=== PATIENT | female | born 1930 | race Caucasian/White ===

== ENCOUNTER 2020-10-30 20:25 | Observation (INO) | payer MEDICARE, OTHER ==
[~2020-10-30] VITALS: Ht 160 cm; Wt 72.1 kg
[~2020-10-30 20:25] MED LIST: ASPIRIN81 M1; DARVON65 MG; DIOVAN HCT 1601 EAC1; DIOVAN40 MG; FISH OIL 1,0001 EAC1; FOSAMAX35 MG PO; MULTIPLE VITAMIN; MULTIVITAMINS1 EAC8
[2020-10-30 21:56] LABS: BASOPHILS % 0.4 % (0.0-1.0); EOSINOPHILS # (AUTO) 0.1 (0.0-0.4); EOSINOPHILS % 1.2 % (0.0-6.0); HEMATOCRIT 41.2 % (34.2-44.1); HEMOGLOBIN 13.8 g/dL (12.0-16.0); LYMPHOCYTES # (AUTO) 2.1 (1.0-3.2); LYMPHOCYTES % 21.4 % (18.0-39.1); MEAN CORPUSCULAR HEMOGLOBIN 31.8 pg (28-32); MEAN CORPUSCULAR HGB CONC 33.5 g/dL (31-35); MEAN CORPUSCULAR VOLUME 94.9 fL (81-99); MONOCYTES # (AUTO) 0.8 (0.2-0.8); MONOCYTES % 7.8 % (4.4-11.3); NEUTROPHILS # (AUTO) 6.6 (2.1-6.9); NEUTROPHILS % 68.8 % (38.7-80.0); PLATELET COUNT 243 x10e3/uL (140-360); RED BLOOD COUNT 4.34 x10e6/uL (3.6-5.1); RED CELL DISTRIBUTION WIDTH 12.3 % (11.7-14.4)
[2020-10-30 22:11] LABS: ALANINE AMINOTRANSFERASE 19 IU/L (0-55); ALBUMIN 3.6 g/dL (3.5-5.0); ALBUMIN/GLOBULIN RATIO 1.1 (0.8-2.0); ALKALINE PHOSPHATASE 65 IU/L (40-150); ANION GAP 15.1 mmol/L (8-16); BLOOD UREA NITROGEN 29 mg/dL (7-26); BUN/CREATININE RATIO 33 (6-25); CALCIUM 8.8 mg/dL (8.4-10.2); CARBON DIOXIDE 24 mmol/L (22-29); CHLORIDE 104 mmol/L (98-107); CREATINE KINASE 44 IU/L (29-168); CREATININE, SERUM 0.89 mg/dL (0.57-1.11); EST GLOMERULAR FILTRATION RATE 60 ML/MIN (60-); GLUCOSE 127 mg/dL (74-118); POTASSIUM 4.1 mmol/L (3.5-5.1); SODIUM 139 mmol/L (136-145)
[2020-10-30 22:32] LABS: CLARITY,URINE SL CLOUDY (CLEAR); COLOR,URINE YELLOW (YELLOW); KETONES,URINE NEGATIVE (NEGATIVE); LEUKOCYTE ESTERASE ,URINE MODERATE (NEGATIVE); NITRITE,URINE NEGATIVE (NEGATIVE); PROTEIN,URINE DIPSTICK NEGATIVE (NEGATIVE); URINE UROBILINOGEN 0.2 mg/dL (0.2 - 1)
[2020-10-30 22:41] LABS: BACTERIA,URINE FEW /HPF; EPITHELIAL CELLS,URINE RARE /LPF; RBC,URINE 0-5 /HPF (0-5)
[2020-10-31] MEDS: SODIUM CHLORIDE 0.9% 1000ML 1,000 ML IV SCH ×2 (01:15→07:51)
[2020-10-31 01:29] VITALS: BP 139/108
[2020-10-31 02:11] VITALS: BP 139/108
[2020-10-31] MEDS ORDERED: COMBIGAN EYE DRO5 ML OS (02:32)
[2020-10-31] MEDS ORDERED: METOPROLOL TART25 MG PO (02:32)
[2020-10-31] MEDS ORDERED: LUMIGAN2.5 M1 OS (02:32)
[2020-10-31 04:00] VITALS: BP 125/61
[2020-10-31 07:32] LABS: BASOPHILS % 0.5 % (0.0-1.0); EOSINOPHILS # (AUTO) 0.1 (0.0-0.4); EOSINOPHILS % 1.1 % (0.0-6.0); HEMATOCRIT 37.9 % (34.2-44.1); HEMOGLOBIN 12.6 g/dL (12.0-16.0); LYMPHOCYTES # (AUTO) 1.6 (1.0-3.2); LYMPHOCYTES % 21.4 % (18.0-39.1); MEAN CORPUSCULAR HEMOGLOBIN 31.7 pg (28-32); MEAN CORPUSCULAR HGB CONC 33.2 g/dL (31-35); MEAN CORPUSCULAR VOLUME 95.2 fL (81-99); MONOCYTES # (AUTO) 0.8 (0.2-0.8); MONOCYTES % 10.4 % (4.4-11.3); NEUTROPHILS % 66.2 % (38.7-80.0); PLATELET COUNT 232 x10e3/uL (140-360); RED BLOOD COUNT 3.98 x10e6/uL (3.6-5.1); RED CELL DISTRIBUTION WIDTH 12.2 % (11.7-14.4)
[2020-10-31 07:50] LABS: ALANINE AMINOTRANSFERASE 16 IU/L (0-55); ALBUMIN 3.2 g/dL (3.5-5.0); ALBUMIN/GLOBULIN RATIO 1.1 (0.8-2.0); ALKALINE PHOSPHATASE 58 IU/L (40-150); BLOOD UREA NITROGEN 27 mg/dL (7-26); BUN/CREATININE RATIO 35 (6-25); CALCIUM 8.4 mg/dL (8.4-10.2); CARBON DIOXIDE 25 mmol/L (22-29); CHLORIDE 110 mmol/L (98-107); CREATININE, SERUM 0.78 mg/dL (0.57-1.11); EST GLOMERULAR FILTRATION RATE > 60 ML/MIN (60-); GLUCOSE 109 mg/dL (74-118); SODIUM 142 mmol/L (136-145)
[2020-10-31 07:54] VITALS: BP 102/61
[2020-10-31 08:00] LABS: CREATINE KINASE 39 IU/L (29-168)
[2020-10-31 09:12] VITALS: BP 102/61
[2020-10-31 09:13] VITALS: BP 102/61
== END 2020-10-31 10:42 | disposition home or self-care (01) ==
LOC: ER 20:32 → ERHOLD 22:33 → MED/SURG 10-31 01:42
PROVIDERS: ADMIT Internal Medicine; ATTEND Internal Medicine
DX: R55 Syncope and collapse (principal); I10 Essential (primary) hypertension; R00.8 Other abnormalities of heart beat; D32.0 Benign neoplasm of cerebral meninges; Z20.822 Contact with and (suspected) exposure to COVID-19
CPT/HCPCS: 36415 ×2; 70450; 71045; 72125; 72170; 80053 ×2; 81001; 82550 ×2; 82553 ×2; 84484 ×2; 85025 ×2; 93005; 99285; G0378 ×2; J7030; U0002

== ENCOUNTER 2021-06-07 08:30 | Emergency (ER) | payer MEDICARE ==
[~2021-06-07] VITALS: Ht 312.4 cm; Wt 72.1 kg
[~2021-06-07 08:30] MED LIST changes: +COMBIGAN EYE DRO5 ML OS; +LUMIGAN2.5 M1 OS; +METOPROLOL TART25 MG PO
[2021-06-07] MEDS ORDERED: GABAPENTIN300 MG PO (08:55)
[2021-06-07] MEDS ORDERED: GABAPENTIN 300 MG CAP PO SCH (09:00)
== END 2021-06-07 12:48 | disposition home or self-care (01) ==
LOC: ER 08:46
DX: M79.622 Pain in left upper arm (principal); R20.2 Paresthesia of skin; I10 Essential (primary) hypertension; R94.31 Abnormal electrocardiogram [ECG] [EKG]; Z85.828 Personal history of other malignant neoplasm of skin
CPT/HCPCS: 93005; 99283